=== PATIENT | male | born 1990 | race American Indian/Alaskan Native ===

== ENCOUNTER 2020-06-05 10:48 | Emergency (ER) | payer SELFPAY ==
--- NOTE | 2020-06-05 12:50 | XRay Report ---
CLINICAL DATA: fall TECHNICAL DATA: AP internal, AP external, and Y views were obtained of the shoulder. FINDINGS: There is no acute fracture. The glenoid fossa humeral head articulation is normal. There is no acromi oclavicular joint widening or offset. The coracoclavicular distance is normal. There are no significa nt degenerative changes. IMPRESSION: No acute radiographic abnormality. Signer Name: Joao Hewitt MD Signed: 06/05/2020 12:46 PM Workstation Name: [id number]
--- NOTE | 2020-06-05 12:50 | XRay Report ---
CLINICAL DATA: fall TECHNICAL DATA: Four views of the ankle were obtained in the AP, lateral, and obliques. FINDINGS: There is no acute fracture, dislocation, or subluxation. There is no joint effusion or soft tissue sw elling. The tibial plafond, ankle mortise, and talar dome are intact. IMPRESSION: No acute radiographic abnormality. Signer Name: Joao Hewitt MD Signed: 06/05/2020 12:46 PM Workstation Name: [id number]
--- NOTE | 2020-06-05 12:52 | XRay Report ---
CLINICAL DATA: fall TECHNICAL DATA: Three views were obtained, AP, lateral and oblique. FINDINGS: Small avulsion fracture involving the base of the distal phalanx fifth digit. Old healed fifth metaca rpal fracture. The visualized joint spaces are normal. IMPRESSION: Minimum displaced fracture fifth digit as noted Signer Name: Joao Hewitt MD Signed: 06/05/2020 12:48 PM Workstation Name: [id number]
--- NOTE | 2020-06-05 14:40 | Emergency Department Report ---
ED Fall HPI - General Chief Complaint: Extremity Injury, Upper Stated Complaint: RT PINKY FINGER POSSIBLE FX/RT SHOULDER/LEG PAIN Time Seen by Provider: 06/05/20 14:33 Source: patient Mode of arrival: Ambulatory - Related Data Allergies Allergy/AdvReac Type Severity Reaction Status Date / Time No Known Allergies Allergy Unverified 06/05/20 11:12 ED Review of Systems ROS: Stated complaint: RT PINKY FINGER POSSIBLE FX/RT SHOULDER/LEG PAIN Other details as noted in HPI ED Past Medical Hx - Past Medical History Previous Medical History?: No - Surgical History Past Surgical History?: No - Social History Smoking Status: Never Smoker Substance Use Type: None ED Physical Exam - General Limitations: No Limitations Critical care attestation.: If time is entered above; I have spent that time in minutes in the direct care of this critically ill patient, excluding procedure time. ED Disposition Condition: Stable Referrals: PRIMARY CARE, [Primary Care Provider] - 3-5 Days
--- NOTE | 2020-06-05 14:43 | Event Note ---
ED Screening Note Date of service: 06/05/20 Time: 14:41 ED Screening Note: This 30-year-old male with no prior medical history presents to ED status post fall down about 10 steps that happened yesterday. Patient complaining of right and pain and deformity of the pinky as long right lower leg pain and shoulder pain. He denies loss of consciousness after incident. This initial assessment/diagnostic orders/clinical plan/treatment(s) is/are subject to change based on patients health status, clinical progression and re- assessment by fellow clinical providers in the ED. Further treatment and workup at subsequent clinical providers discretion. Patient/guardian urged not to elope from the ED as their condition may be serious if not clinically assessed and managed. Initial orders include: Displaced fracture on x-ray of the hand Reduction and splint
--- NOTE | 2020-06-05 17:30 | Emergency Department Report ---
Upper Extremity - HPI Chief Complaint: Extremity Injury, Upper Stated Complaint: RT PINKY FINGER POSSIBLE FX/RT SHOULDER/LEG PAIN Time Seen by Provider: 06/05/20 14:33 Upper Extremity: Right Little Finger Occurred When: 2 Days Mechanism: Fall Severity: mild, moderate Symptoms: Yes Pain with Movement, Yes Limited Range of Movement, Yes Swelling, No Deformity, No Numbness, No Weakness, No Bruising/Ecchymosis, No Laceration or Abrasion ED Review of Systems ROS: Stated complaint: RT PINKY FINGER POSSIBLE FX/RT SHOULDER/LEG PAIN Other details as noted in HPI Comment: All other systems reviewed and negative ED Past Medical Hx - Past Medical History Previous Medical History?: No - Surgical History Past Surgical History?: No - Social History Smoking Status: Never Smoker Substance Use Type: None - Medications Home Medications: Home Medications Medication Instructions Recorded Confirmed Last Taken Type Ketorolac [Toradol] 10 mg PO Q6H PRN #10 tablet 06/05/20 Unknown Rx Upper Extremity Exam - Exam General: Vital signs noted. No distress. Alert and acting appropriately. Head and Torso: No HEENT Abnormality, No Neck Tenderness, No Chest/Lungs Abnormality, No Abdominal Tenderness, No Back Tenderness Shoulder Exam: Yes Normal Range of Motion in Shoulder, No Shoulder Tenderness, No Clavicle Tenderness, No Shoulder Deformity, No AC Joint Tenderness Arm Exam: No Arm/Humerus Tenderness, No Arm Deformity Elbow: No Elbow Tenderness, No Normal Range of Motion in Elbow, No Elbow Deformi ty Forearm: No Forearm Tenderness, No Forearm Deformity, No Pain with Pronation, No Pain with Supination Wrist: Yes Normal ROM in Wrist, No Wrist Tenderness, No Wrist Deformity, No Snuffbox Tenderness, No Pain with Axial Thumb Compression Hand: Yes Normal ROM in Digit(s), No Hand Tenderness, No Hand Deformity, No Digit Tenderness, No Digit(s) Deformity, No Tendon Dysfunction CMS Exam: Yes Normal Distal Pulses, Yes Normal Capillary Refill, Yes Normal Distal Sensation, No Broken Skin Hand L/R Back: 1 - Tenderness to this region with palpation. Capillary refill is brisk - Procedure Description Procedures done: Placed in a finger splint neurovascularly intact. ED Medical Decision Making - Radiology Data Radiology results: report reviewed Referring Physician:ED DOCPatient Name:REX FERGUSONPatient ID:[id number] of :[id number]:MaleAccession:[id number] Date:7949-04-68Cnajvt Status:Finalized Findings [address] [address] XRay Report Signed Patient: REX FERGUSON MR#: [id number] 3 : 1990 Acct:[id number] Age/Sex: 30 / M ADM Date: 06/05/20 Loc: ED Attending Dr: Ordering Physician: JOVANNI WALDROP MD Date of Service: 06/05/20 Procedure(s): XR shoulder 2+V RT Accession Number(s): [id number] cc: JOVANNI WALDROP MD Fluoro Time In Minutes: CLINICAL DATA: fall TECHNICAL DATA: AP internal, AP external, and Y views were obtained of the shoulder. FINDINGS: There is no acute fracture. The glenoid fossa humeral head articulation is normal. There is no acromioclavicular joint widening or offset. The coracoclavicular distance is normal. There are no significant degenerative changes. IMPRESSION: No acute radiographic abnormality. Signer Name: Joao Hewitt MD Signed: 06/05/2020 12:46 PM Workstation Name: [id number] Transcribed By: WG Dictated By: Joao Hewitt MD Electronically Authenticated By: Joao Hewitt MD Signed Date/Time: 06/05/20 1246 DD/ 1246 TD/TT: Referring Physician:JOVANNI DOCPatient Name:REX FERGUSONPatient ID:[id number] of :[id number]:MaleAccession:[id number] Date:7417-34-42Wdefpv Status:Finalized Findings [address] [address] XRay Report Signed Patient: REX FERGUSON MR#: [id number] 3 : 1990 Acct:[id number] Age/Sex: 30 / M ADM Date: 06/05/20 Loc: ED Attending Dr: Ordering Physician: JOVANNI WALDROP MD Date of Service: 06/05/20 Procedure(s): XR ankle 3+V RT Accession Number(s): [id number] cc: JOVANNI WALDROP MD Fluoro Time In Minutes: CLINICAL DATA: fall TECHNICAL DATA: Four views of the ankle were obtained in the AP, lateral, and obliques. FINDINGS: There is no acute fracture, dislocation, or subluxation. There is no joint effusion or soft tissue swelling. The tibial plafond, ankle mortise, and talar dome are intact. IMPRESSION: No acute radiographic abnormality. Signer Name: Joao Hewitt MD Signed: 06/05/2020 12:46 PM Workstation Name: [id number] Transcribed By: APRYL Dictated By: Joao Hewitt MD Electronically Authenticated By: Joao Hewitt MD Signed Date/Time: 06/05/20 124 DD/ 1245 TD/TT: Referring Physician:JOVANNI WALDROPPatient Name:REX FERGUSONPatient ID:[id number] of :[id number]:MaleAccession:[id number] Date:8179-69-77Isorfb Status:Finalized Findings [facility] [address] [place] [address] XRay Report Signed Patient: REX FERGUSON MR#: [id number] 3 : 1990 Acct:[id number] Age/Sex: 30 / M ADM Date: 06/05/20 Loc: ED Attending Dr: Ordering Physician: JOVANNI WALDROP MD Date of Service: 06/05/20 Procedure(s): XR ankle 3+V RT Accession Number(s): [id number] cc: JOVANNI WALDROP MD Fluoro Time In Minutes: CLINICAL DATA: fall TECHNICAL DATA: Four views of the ankle were obtained in the AP, lateral, and obliques. FINDINGS: There is no acute fracture, dislocation, or subluxation. There is no joint effusion or soft tissue swelling. The tibial plafond, ankle mortise, and talar dome are intact. IMPRESSION: No acute radiographic abnormality. Signer Name: Joao Hewitt MD Signed: 06/05/2020 12:46 PM Workstation Name: [id number] Transcribed By: APRYL Dictated By: Joao Hewitt MD Electronically Authenticated By: Joao Hewitt MD Signed Date/Time: 06/05/20 1246 DD/ 1245 TD/TT: Referring Physician:JOVANNI WALDROPPatient Name:REX FERGUSONPatient ID:[id number] of :[id number]:MaleAccession:[id number] Date:4707-44-04Beambs Status:Finalized Findings [facility] [address] [place] [address] XRay Report Signed Patient: REX FERGUSON MR#: [id number] 3 : 1990 Acct:[id number] Age/Sex: 30 / M ADM Date: 06/05/20 Loc: ED Attending Dr: Ordering Physician: JOVANNI WALDROP MD Date of Service: 06/05/20 Procedure(s): XR hand 3+V RT Accession Number(s): [id number] cc: JOVANNI WALDROP MD Fluoro Time In Minutes: CLINICAL DATA: fall TECHNICAL DATA: Three views were obtained, AP, lateral and oblique. FINDINGS: Small avulsion fracture involving the base of the distal phalanx fifth digit. Old healed fifth metacarpal fracture. The visualized joint spaces are normal. IMPRESSION: Minimum displaced fracture fifth digit as noted Signer Name: Joao Hewitt MD Signed: 06/05/2020 12:48 PM Workstation Name: [id number] Transcribed By: WG Dictated By: Joao Hewitt MD Electronically Authenticated By: Joao Hewitt MD Signed Date/Time: 06/05/20 1248 DD/ 124 TD/TT: Critical care attestation.: If time is entered above; I have spent that time in minutes in the direct care of this critically ill patient, excluding procedure time. ED Disposition Clinical Impression: Avulsion fracture of distal phalanx of finger Disposition: DC-01 TO HOME OR SELFCARE Is pt being admited?: No Does the pt Need Aspirin: No Condition: Stable Instructions: Finger Fracture, Adult, Ujgn-kj-Hogb, Cast or Splint Care, Adult, Ajva-ak-Fach, How to Use Cold Therapy Prescriptions: Ketorolac [Toradol] 10 mg PO Q6H PRN #10 tablet PRN Reason: Pain Referrals: PRIMARY CARE, [Primary Care Provider] - 3-5 Days [facility] [Provider Group] - 3-5 Days
== END 2020-06-05 18:22 | disposition home or self-care (01) ==
LOC: ED 10:48
DX: S62.636A Displaced fracture of distal phalanx of right little finger, initial encounter for closed fracture (principal); Z79.899 Other long term (current) drug therapy; X58.XXXA Exposure to other specified factors, initial encounter; Y93.89 Activity, other specified; Y92.89 Other specified places as the place of occurrence of the external cause; Y99.8 Other external cause status